=== PATIENT | female | born 2000 | race Caucasian/White ===

== ENCOUNTER 2021-09-23 02:40 | Emergency (ER) | payer OTHER ==
[~2021-09-23] VITALS: Ht 175.3 cm; Wt 102.1 kg
[2021-09-23 02:44] VITALS: BP 117/64
[2021-09-23] MEDS ORDERED: ISENTRESS400 MG PER TUBE (03:06)
[2021-09-23] MEDS ORDERED: TRUVADA 200 MG1 EACH PO (03:06)
[2021-09-24 06:06] LABS: HEP B SURFACE Ab(ANTI-HBS Non Reactive (()); HEPATITIS B SURFACE AG Negative (Negative); HEPATITIS C VIRUS AB <0.1 (0.0-0.9)
== END 2021-09-23 03:27 | disposition home or self-care (01) ==
LOC: ER 02:40
PROVIDERS: Emergency Medicine
DX: M79.641 Pain in right hand (principal); Z77.21 Contact with and (suspected) exposure to potentially hazardous body fluids; Z90.49 Acquired absence of other specified parts of digestive tract